=== PATIENT | male | born 1945 | race Caucasian/White ===

== ENCOUNTER → 2018-04-21 | Outpatient (CLI) | payer OTHER, BC ==
[~2018-04-21] VITALS: Ht 172.7 cm; Wt 60.4 kg
[~2018-04-21] MED LIST: AMIODARONE HCL100 MG PO; AMITIZA 24 MCG24 MC1 PO; ANDROGEL1.25 GM TRANSDERM; ASPIR 8181 MG PO; ATIVAN1 MG PO; CARDURA4 MG PO; CLONAZEPAM 0.50.5 M1 PO; CLONIDINE0.1 PO; DESYREL150 MG PO; FLOMAX0.4 MG PO; FLONASE 0.05%50 MCG NASAL; HYDRALAZINE 2525 MG PO; INLYTA5 MG PO; IRON325 PO; LASIX 80 MG TAB80 MG PO; LEVOTHYROXINE100 MC1 PO; MAGOX 400400 MG PO; MIRALAX17 GM PO; MS CONTIN 30 MG30 MG PO; MS CONTIN15 MG PO; NYAMYC15 GM TOP; ONDANSETRON HCL4 M2 PO; PROVIGIL 200 M200 M1 PO; REFRESH TEARS15 ML OPHTHALMIC; REMERON15 MG PO; SENNA PLUS TAB1 EACH PO; SPIRONOLACTONE25 M1 PO; SUDAFED 12 HOU120 MG PO; ZANTAC 150MG T150 MG PO
[2018-04-21 15:23] VITALS: BP 132/64
--- NOTE | 2018-04-21 16:54 | NUR ---
Pain Clinic Assessment: 1. History of Osteoarthritis: JOINTS KNEES, SHOULDERS, WRISTS History of Rheumatoid Arthritis: NO 2. Height: 5 ft. 8 in. 172.7 cm. Weight: 133.2 lb. oz. 60.419 kg. Patient's BMI: 20.3 3. Vital Signs: BP: 132/64 Pulse: 73 Resp: 16 Temp: 02 Sat: 97 ECG Mon: 4. Pain Intensity: 8 5. Fall Risk: Dizziness: Y Needs help standing or walking: Y Fallen in the last 3 months: Y Fall risk comments: 6. Patient on Blood Thinner: None 7. History of Hypertension: Y 8. Opioid Therapy greater than 6 weeks: Y Opiate Contract Signed: 9. Risk Assessment Tool Provided: 10. Functional Assessment Tool: 11. Recreational Drug Use: Unknown Drug Type: Tobacco Use: Unknown if Ever Smoked Tobacco Type: Amount or Packs/day: How Many Years: Alcohol Use: No Frequency: Quant:
--- NOTE | 2018-04-23 15:32 | HPC ---
[facility] [place] [address] PAIN MANAGEMENT CONSULTATION Name: APPLE AZEVEDO Room #: REG ABHI CalzadaRavindraAlma.#: [id number] Admission: 04/21/18 Attend Phys: Kumar Bourne MD Discharge: Date of : 49 Report #: [id number] THIS REPORT FOR: //name// CC: CHARO DOMINGUEZ MD DATE OF SERVICE: 04/21/2018 REASON FOR VISIT: Renal cell carcinoma with chronic diffuse pain. The patient requests second opinion. 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 He has stage 4 renal cell carcinoma. Cancers have been identified apparently in both kidneys, but there is no additional spread of cancer per family and report. He has been struggling with chronic pain predating his cancer diagnosis 3 years ago. He suffers from diffuse arthropathy with pain in his shoulders, right and left, both having undergone several surgeries; bilateral knee pain with osteoarthritis and pain in other joints including hips, ankles and elbows. He describes his pain as continuous, steady and constant. Intensity is 8/10. He suffers round the clock and has been on opioids and other co-analgesics for management. His pain medications have been provided to him under an opioid agreement established with the palliative care team at . He sees Dr. Siobhan Castillo. His medication has been adjusted frequently. I discussed his care on the phone after his visit with his palliative care physician at [facility], Dr. Castillo. She reports that they have been adjusting cautionsly and he has suffered some falls recently, medication may have played a role. He has recenlty been tapered by about 25% on his morphine. He feels currently that his pain is poorly controlled. He complains additionaly of fatigue and chronic cough. Because of his fall risk he walks with a cane MEDICATIONS: Sudafed, clonazepam, amiodarone, axitinib 5 mg b.i.d., Flomax 0.4 mg daily, testosterone, Provigil 200 mg once daily, morphine sulfate 45 mg a.m. and 15 mg p.m., ondansetron, levothyroxine, Lasix 80 mg b.i.d., clonidine 0.1 mg t.i.d., trazodone 150 at bedtime, Zantac 150 mg daily, MiraLax, mirtazapine 45 mg at bedtime, Mag-Ox, hydralazine, fluticasone, iron 81 mg, ASA, Amitiza. ALLERGIES: GABAPENTIN. PAST MEDICAL HISTORY: Hypertension, hepatitis in 1972, diffuse osteoarthritis, [facility] [address] [place] [address] PAIN MANAGEMENT CONSULTATION Name: APPLE AZEVEDO Room #: REG ABHI Flores#: [id number] Admission: 04/21/18 Attend Phys: Kumar Bourne MD Discharge: Date of : 49 Report #: [id number] bilateral renal cell carcinoma diagnosed 3 years ago. PAST SURGICAL HISTORY: Arthroscopic surgery bilateral knees; open shoulder surgery, left and right; previous laminectomy for lumbar radiculopathy. SOCIAL HISTORY: He is and retired. He was a pharmacist at the [employer]. He last worked in 02/2012. He lives with his sister. He is independent within the home. He does not drive. He has some assistance from caregivers assisting with doctors appointments and driving to store to shop for groceries. His sister muses that she is not best at that! denies use of tobacco or alcohol. Impact of pain score completed by the patient scoring 7 activities is actually quite low. Scoring pain interference with general activity at 7/10, mood 4/10, relationships with others /10, sleep /10 and enjoyment of life /10. REVIEW OF SYSTEMS: Positive for constant night sweats since diagnosis, chronic productive cough of thin mucus, chronic constipation, memory loss, nervousness, depression. PHYSICAL EXAMINATION: GENERAL: Pleasant, intense gentleman, alert, oriented. VITAL SIGNS: Blood pressure 132/64, heart rate 73, respirations 16. He is 5 feet 8 inches, 133 pounds with a BMI of 20.3. HEENT: Reveals pupils to be equal, round, reactive to light. Mucous membranes are dry. NECK: Supple. No palpable masses or adenopathy. CHEST: Clear. CARDIAC: Rhythm was regular. I could not appreciate a murmur. ABDOMEN: Distended, almost feels like fluid. I could not bring about a fluid wave. He has no palpable hepatosplenomegaly. EXTREMITIES: Revealed mild edema. MUSCULOSKELETAL: Reveals diffuse pain of joints, particularly shoulders, hips and knees. He has tenderness across the low back. There is a scar from previous surgery. Straight leg raising is negative. He walks with an antalgic somewhat unsteady gait, using a cane. IMPRESSION: 1. Bilateral renal carcinoma with lobulated kidneys containing cystic and solid nodules. Most recent CT scan showing no new abdominal or pelvic lymphadenopathy. 2. 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 3. Chronic fatigue. 4. Polypharmacy including opioids for intractable pain. RECOMMENDATIONS: We had a long discussion today about risks of medications and [facility] [address] [place] [place] [address] PAIN MANAGEMENT CONSULTATION Name: APPLE AZEVEDO Room #: REG [facility] M..#: [id number] Admission: 04/21/18 Attend Phys: Kumar Bourne MD Discharge: Date of : 49 Report #: [id number] particularly his risk of fall and confusion with higher doses of systemic opioids and other medications. I spoke with Dr. Siobhan Castillo of the Palliative Care Service at [facility]. She reported that they have worked hard to try and find a safe dose of medication that will provide meaningful relief without side effects. He is currently on morphine at a dose of 60 mg per day. He takes 45 mg in the morning and 15 in the evening. He feels that this is inadequate and is a lower dose than he was taking previously. I presented the option of an intrathecal pump, which would allow for spinal mediated analgesia rather than systemic mediatiobns. The lower doses and IT route would likely present fewer systemic side effects and might improve pain and fatigue. He was very interested and I have referred him to Dr. Charo Weston and his team for trial of therapy and implant. I would be happy to manage his intrathecal pump going forward as well as his oral medications. Dr. Castillo also is willing to provide him with medication as necessary. We will try to keep his care at [facility] where Dr. Syed is currently practicing. It would be best if he remains within a single system for communication amongst physicians. I was concerned today by his cough and note that his x-rays have shown in the past that there are some ground glass appearing infiltrates. He is on amiodarone, which may cause pulmonary fibrosis. His cough and pulmonary exam are evidence and he has had some x-rays suggesting a ground glass appearance. I am certain Dr. Pretty, his industrial laborer will follow this serious potential complication and toxicity of therapy. A Referral and a personal call placed to staff at the office of Dr. Morris. I plan to see him back in the pain clinic for followup. Either Dr. Morris and his team can follow him for his IT pump and pain management or I would be happy to continue this service going forward. <ELECTRONICALLY SIGNED> By: Kumar Bourne MD 04/23/18 1532 [id number] [id number] Kumar Bourne MD /nt
== END ==
LOC: PAIN 13:31
DX: C64.2 Malignant neoplasm of left kidney, except renal pelvis (principal); C64.1 Malignant neoplasm of right kidney, except renal pelvis; R53.82 Chronic fatigue, unspecified; G89.4 Chronic pain syndrome; N28.1 Cyst of kidney, acquired; L40.52 Psoriatic arthritis mutilans; Z79.899 Other long term (current) drug therapy

== ENCOUNTER → 2018-06-23 | Outpatient (CLI) | payer OTHER, BC ==
[~2018-06-23] VITALS: Ht 172.7 cm; Wt 64.0 kg
[~2018-06-23] MED LIST changes: +LINZESS290 MCG PO; +MEGESTROL625 MG/5 M PO; +MORPHINE SULFAT15 M3 PO; +OXYCODONE HCL 55 MG PO
--- NOTE | ~2018-06-23 | HPC ---
[facility] [address] [place] [address] PAIN MANAGEMENT CONSULTATION Name: APPLE AZEVEDO Room #: REG [facility] MRavindra.#: [id number] Admission: 06/23/18 ������������������ Attend Phys: Kumar Bourne MD Discharge: ������������������ Date of : 49 Report #: [id number] THIS REPORT FOR: //name// CC: Krishan Frias DATE OF SERVICE: 06/23/2018 Followup visit for renal cell carcinoma with diffuse abdominal pain and osteoarthritis. The patient is here today for the first time to adjust his intrathecal infusion pump in our clinic. Dr. Morris placed the pump less than 2 weeks ago and initiated therapy at an extremely low morphine dose of 0.25 mg per day. The pump has been adjusted on a single occasion to 0.35, still only a third of a milligram per day. The patient is tolerant to opioids and is currently taking 60 mg of oral MS Contin per day, 45 in the morning and 15 later in the day. He feels drowsy throughout the day. Our goal is to increase his intrathecal dose so that he can taper off of the systemic opioid and use it only for breakthrough. He currently has no intermediate release morphine only extended release and we talked about switching him over using the intrathecal pump as his baseline and MS IR 15 mg for breakthrough while we titrate his dose upwards. Other than abdominal pain, he complains of pain in his knees, shoulders and wrists with a history of arthritis. His BMI has remained stable at 21.5. He is a fall risk and has fallen within the last few weeks. I stressed the need for caution in mobility. He is on no blood thinners, but does have a history of hypertension. He is on opioid therapy and has been provided medication by his oncologist by Dr. Morris and also I have initiated some therapy through our clinic today. We will establish a relationship providing all of his oral and intrathecal opioids with an opioid agreement. PHYSICAL EXAMINATION: His affect is depressed. Blood pressure 154/74, heart rate 68, respirations 14, 5 feet 8 inches, 141 pounds. His chest is clear. He moves very slowly from sitting to standing position and walks with a bit of an unsteady gait. His abdomen is distended and tender. He has 1+ to 2+ pretibial edema. Pump is in the right lower abdomen and appears to be healing well. There is no evidence of swelling or infection. IMPRESSION: 1. Renal cell carcinoma with lobulated kidneys containing cystic and solid nodules. 2. Multi-joint arthropathy with chronic intractable joint pain. 3. Chronic fatigue, possibly related to systemic opioid therapy. [address] [address] PAIN MANAGEMENT CONSULTATION Name: JOLLYAPPLE Room #: REG ABHI Patterson.#: [id number] Admission: 06/23/18 ������������������ Attend Phys: Kumar Bourne MD Discharge: ������������������ Date of : 49 Report #: [id number] 4. Polypharmacy. PLAN: I have increased his intrathecal pump from 0.35 to 0.7 mg per day. The plan is to taper his oral opioids over the next day or two as his new rate becomes effective. I have also initiated a patient group therapy counselor, PTM device providing him with an additional 0.1 mg every 4 hours, allowing him to then increase his total daily dose to a maximum of 1.3 mg per day if he uses maximum activations. This will allow him the ability to titrate his dose upward. RECOMMENDATIONS: We will watch carefully for additional opioid side effects from the intrathecal pump particularly worsening of edema. I have told him that if this continues to progress, we may need to consider the addition of fentanyl or a transition over to fentanyl.. A prescription for MSIR 15 mg, #60, one tablet q. 4 hours for breakthrough was provided in lieu of his current long-acting morphine and I provided him a card with my cellular telephone so that he can reach me if there are any questions. Time spent with the patient 45 minutes. ��������������������������������������������� ���������������������������������������� By: ��������������������������������������������� 1624 0539 Kumar Bourne MD /nt
[2018-06-23 13:05] VITALS: BP 154/74
--- NOTE | 2018-06-23 13:52 | NUR ---
Pain Clinic Assessment: 1. History of Osteoarthritis: JOINTS KNEES, SHOULDERS, WRISTS History of Rheumatoid Arthritis: NO 2. Height: 5 ft. 8 in. 172.7 cm. Weight: 141.2 lb. oz. 64.048 kg. Patient's BMI: 21.5 3. Vital Signs: BP: 154/74 Pulse: 68 Resp: 14 Temp: 02 Sat: 98 ECG Mon: 4. Pain Intensity: 8-INCISIONAL 5. Fall Risk: Dizziness: Y Needs help standing or walking: Y Fallen in the last 3 months: Y Fall risk comments: 6. Patient on Blood Thinner: None 7. History of Hypertension: Y 8. Opioid Therapy greater than 6 weeks: Y Opiate Contract Signed: 9. Risk Assessment Tool Provided: 10. Functional Assessment Tool: 11. Recreational Drug Use: Never Drug Type: Tobacco Use: Never Smoker Tobacco Type: Amount or Packs/day: How Many Years: Alcohol Use: No Frequency: Quant:
== END | disposition home or self-care (01) ==
LOC: PAIN 06:56
DX: C64.9 Malignant neoplasm of unspecified kidney, except renal pelvis (principal); Z45.1 Encounter for adjustment and management of infusion pump; R10.9 Unspecified abdominal pain; G89.29 Other chronic pain; I10 Essential (primary) hypertension; M19.90 Unspecified osteoarthritis, unspecified site; R53.82 Chronic fatigue, unspecified; Z79.899 Other long term (current) drug therapy; Z79.891 Long term (current) use of opiate analgesic; Z98.890 Other specified postprocedural states

== ENCOUNTER → 2018-07-03 | Outpatient (CLI) | payer OTHER, BC ==
[~2018-07-03] VITALS: Ht 172.7 cm; Wt 64.2 kg
[~2018-07-03] MED LIST changes: +LASIX 40 MG TAB40 M2 PO; -LASIX 80 MG TAB80 MG PO
--- NOTE | ~2018-07-03 | HPC ---
[facility] [place] [address] PAIN MANAGEMENT CONSULTATION Name: APPLE AZEVEDO Room #: REG CHRISTOPHERRamez Flores#: [id number] Admission: 07/03/18 ������������������ Attend Phys: Kumar Bourne MD Discharge: ������������������ Date of : 49 Report #: [id number] THIS REPORT FOR: //name// CC: CHARO Miller DATE OF SERVICE: 07/03/2018 Followup visit for renal cell carcinoma with chronic pain. The patient returns to pain clinic today in followup. I am pleased to report that he is pain free. He scores his pain as 0/10 and is completely off all of his systemic opioids. He has discontinued the morphine IR that we provided him at last visit. His intrathecal infusion pump was doubled at his last visit. He is currently now receiving a dose of morphine at 0.7 mg/day. He has a PTM device, which will allow him to increase this up to 1.29 mg per day, but he has not used it since provided last week. The increase provided at the last visit appears to have been right on spot. His activities increased some. He feels clearer in his head. He has less nausea. He still has some chronic pain in his knees and shoulders, but this is also reduced and much more tolerable, low enough that he does not score. He had questions about an upcoming dental surgery. He may undergo a general anesthetic for this because they found it difficult to provide him with local anesthetic block. 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 Nonetheless, he may be more comfortable undergoing an anesthetic for this procedure. He can use some of his breakthrough morphine if needs to following the oral surgery. PHYSICAL EXAMINATION: His affect remains fairly flat. His blood pressure 135/60, heart rate 62, respirations 16. BMI is 21.5. Abdomen appears a bit less distended to me today. Most pleasing in his exam is the fact that the peripheral edema that was present last week has actually diminished with the increase in the morphine and with better mobilization. We were fearful that he might have the idiosyncratic intrathecal morphine edema [facility] [address] [place] [address] PAIN MANAGEMENT CONSULTATION Name: APPLE AZEVEDO Room #: REG [facility] Leonardo.#: [id number] Admission: 07/03/18 ������������������ Attend Phys: Kumar Bourne MD Discharge: ������������������ Date of : 49 Report #: [id number] that is so common. It appears not to have occurred, in fact his reduction in edema is a good sign. IMPRESSION: 1. Renal cell carcinoma with metastasis. 2. Intractable pain, now under control with intrathecal morphine. PLAN: I have told him that we do not need to see him until late October for pump refill, but I am available at any time should there be question about therapy or he needs an adjustment in his pump. We have many additional options that we can provide going forward as he remains on monotherapy. He was discharged with followup visit planned in October or as needed. ��������������������������������������������� ���������������������������������������� By: ��������������������������������������������� 1724 0958 Kumar Bourne MD /nt
[2018-07-03 15:03] VITALS: BP 135/60
--- NOTE | 2018-07-03 15:24 | NUR ---
Pain Clinic Assessment: 1. History of Osteoarthritis: JOINTS KNEES, SHOULDERS, WRISTS History of Rheumatoid Arthritis: NO 2. Height: 5 ft. 8 in. 172.7 cm. Weight: 141.6 lb. oz. 64.229 kg. Patient's BMI: 21.5 3. Vital Signs: BP: 135/60 Pulse: 62 Resp: 16 Temp: 02 Sat: 96 ECG Mon: 4. Pain Intensity: 0 5. Fall Risk: Dizziness: Y Needs help standing or walking: Y Fallen in the last 3 months: N Fall risk comments: 6. Patient on Blood Thinner: None 7. History of Hypertension: Y 8. Opioid Therapy greater than 6 weeks: Y Opiate Contract Signed: 9. Risk Assessment Tool Provided: 10. Functional Assessment Tool: 11. Recreational Drug Use: Never Drug Type: Tobacco Use: Never Smoker Tobacco Type: Amount or Packs/day: How Many Years: Alcohol Use: No Frequency: Quant:
== END ==
LOC: PAIN 06:55
DX: G89.4 Chronic pain syndrome (principal); C64.9 Malignant neoplasm of unspecified kidney, except renal pelvis; Z79.899 Other long term (current) drug therapy

== ENCOUNTER → 2018-10-23 | Outpatient (CLI) | payer OTHER, BC ==
[~2018-10-23] VITALS: Ht 172.7 cm; Wt 67.0 kg
[2018-10-23 14:24] VITALS: BP 135/54
--- NOTE | 2018-10-23 14:52 | NUR ---
Pain Clinic Assessment: 1. History of Osteoarthritis: JOINTS KNEES, SHOULDERS, WRISTS History of Rheumatoid Arthritis: NO 2. Height: 5 ft. 8 in. 172.7 cm. Weight: 147.8 lb. oz. 67.042 kg. Patient's BMI: 22.5 3. Vital Signs: BP: 135/54 Pulse: 68 Resp: 14 Temp: 02 Sat: 97 ECG Mon: 4. Pain Intensity: 8-knees 5. Fall Risk: Dizziness: Y Needs help standing or walking: Y Fallen in the last 3 months: Y Fall risk comments: 6. Patient on Blood Thinner: None 7. History of Hypertension: Y 8. Opioid Therapy greater than 6 weeks: Y Opiate Contract Signed: 9. Risk Assessment Tool Provided: 10. Functional Assessment Tool: 11. Recreational Drug Use: Never Drug Type: Tobacco Use: Never Smoker Tobacco Type: Amount or Packs/day: How Many Years: Alcohol Use: No Frequency: Quant:
--- NOTE | 2018-10-30 16:33 | HPC ---
[facility] [place] [address] PAIN MANAGEMENT CONSULTATION Name: APPLE AZEVEDO Room #: REG [facility] MAlvaro.#: [id number] Admission: 10/23/18 Attend Phys: Kumar Bourne MD Discharge: Date of : 49 Report #: [id number] THIS REPORT FOR: //name// CC: JULIEN Miller DATE OF SERVICE: 10/23/2018 CHIEF COMPLAINT: Followup visit for management of cancer related pain. History of renal cell carcinoma. HISTORY OF PRESENT ILLNESS: The patient returns to pain clinic today for pump adjustment. He is currently receiving 0.7 mg of morphine per day in his pump. Pain is now increased to the point where he does not feel that this is adequate. I last saw him in June. He was doing exceptionally well at that time with the low dose. He has a PTM device, which was given to him at surgery, but it was never programmed for his use. He has brought it with him to clinic today and I have taken the liberty of programming a PTM option for him and instructed him on the pump. He says that his pain intensity level is 8/10. PQRS REVIEW: 1. History of arthritis, joints, knees, shoulders, wrists. 2. BMI 22.5. 3. Vital signs: Blood pressure 135/54, heart rate 64, respirations 14, O2 sat 97. 4. Pain intensity 8/10, mostly in his knees, although he has some pain also throughout his abdomen and pelvis. 5. He is a fall risk, needs help standing and has occasional dizziness. He has fallen in the last 3 months, but has not injured himself. 6. He is on no blood thinners. 7. He has a history of hypertension. He is on medications and numerous medications are listed on his electronic medical record, which were reviewed for completeness today and there are no surprises or new medications that we are unaware of. 8. He has signed an opioid agreement through our clinic. 9. He is at low risk for addiction by the opioid risk tool. 10. Functional assessment tool scored by the patient is 22/70. 11. He denies use of tobacco and alcohol. PHYSICAL EXAMINATION: VITAL SIGNS: As noted above. [address] [address] PAIN MANAGEMENT CONSULTATION Name: APPLE AZEVEDO Room #: REG [facility]..#: [id number] Admission: 10/23/18 Attend Phys: Kumar Bourne MD Discharge: Date of : 49 Report #: [id number] GENERAL: He is pleasant, alert and oriented. He speaks slowly and has somewhat of a flat affect, but there is a bit of a twinkle in his eye today. He has grown a mccormick! CHEST: Clear to auscultation. CARDIAC: Rhythm is regular. ABDOMEN: Distended with ascites. He has tenderness throughout. He has some tape pain across his low back. Tenderness also is noted in the right knee. IMPRESSION: 1. Renal cell carcinoma with metastasis. Intractable pain related to cancer. 2. Management of intrathecal infusion pump. 3. Management of some breakthrough oral medication as necessary. Prescriptions written today at discharge. PROCEDURE: Reprogramming session was performed. I increased his basal rate from 0.79 to 0.91, increase of roughly 15%. I then set up his PTM, patient booster allowing him to have 0.1 mg of additional morphine through the intrathecal pump every 2 hours up to a total of 6 doses a day. This would roughly double his current usage if he uses all PTM options. I spent a total of 25 minutes today [id number] with him in discussions and also in education of the use of the PTM. I practiced with him the use of the device on more than one occasion and also instructed his sisters with him who wrote down written instructions. I placed my name on his programming information, he can call if necessary. My cell phone was provided. Followup visit planned in the pain clinic as needed. He still has several months of medication in his pump and he will not need urgent refill. <ELECTRONICALLY SIGNED> By: Kumar Bourne MD 10/30/18 1633 1716 0033 Kumar Bourne MD /nt
== END | disposition home or self-care (01) ==
LOC: PAIN 08-06 14:43
DX: Z45.1 Encounter for adjustment and management of infusion pump (principal); G89.3 Neoplasm related pain (acute) (chronic); C64.9 Malignant neoplasm of unspecified kidney, except renal pelvis; M19.90 Unspecified osteoarthritis, unspecified site; I10 Essential (primary) hypertension; Z79.891 Long term (current) use of opiate analgesic; Z88.8 Allergy status to other drugs, medicaments and biological substances; Z79.899 Other long term (current) drug therapy; Z98.890 Other specified postprocedural states